=== PATIENT | male | born 1995 | race Caucasian/White ===

== ENCOUNTER 2022-12-10 13:09 | Emergency (ER) | payer OTHER ==
[~2022-12-10] VITALS: Ht 180.3 cm; Wt 127.0 kg
[2022-12-10 13:12] VITALS: BP 140/78
[2022-12-10 14:40] LABS: BASOPHILS % (AUTO) 0.8 % (0.0-5.0); EOSINOPHILS % (AUTO) 3.7 % (0.0-8.0); HEMATOCRIT 45.5 % (42-54); LYMPHOCYTES % (AUTO) 40.3 % (21.0-51.0); MEAN CORPUSCULAR HGB CONC 33.6 g/dL (32.0-36.0); MEAN CORPUSCULAR VOLUME 83.2 fL (79-99); MONOCYTES % (AUTO) 8.4 % (3.0-13.0); NEUTROPHILS % (AUTO) 46.6 % (40.0-77.0); PLATELET COUNT (AUTO) 184 K/uL (130-400); RED BLOOD CELL COUNT(AUTO) 5.47 MIL/uL (4.50-6.20); RED CELL DISTRIBUTION WIDTH 12.9 % (11.0-15.5); WHITE BLOOD COUNT (AUTO) 6.3 K/uL (4.8-10.8)
[2022-12-10 14:51] LABS: CREATININE 0.9 mg/dL (0.5-1.5)
[2022-12-10 14:56] LABS: ALBUMIN 3.9 g/dL (3.5-5.0)
[2022-12-10 15:45] LABS: ERYTHROCYTE SEDIMENTATION RATE 3 MM/HR (0-15)
[2022-12-10] MEDS ORDERED: TETANUS/DIPHTHERIA TOXOID [ADULT] 0.5 ML VIAL IM ONE (16:00)
[2022-12-10] MEDS ORDERED: AMOX1TAB16 PO (16:13)
== END 2022-12-10 16:56 | disposition left against medical advice (07) ==
LOC: EDH 13:09
DX: S91.331A Puncture wound without foreign body, right foot, initial encounter (principal); Z91.040 Latex allergy status; X58.XXXA Exposure to other specified factors, initial encounter; Y93.89 Activity, other specified; Y92.89 Other specified places as the place of occurrence of the external cause; Y99.8 Other external cause status
CPT/HCPCS: 36415; 73630; 80053; 85025; 85651